=== PATIENT | female | born 1935 | race Caucasian/White ===

== ENCOUNTER 2017-04-16 09:52 | Observation (INO) | payer MEDICARE ==
[2017-04-16] MEDS ORDERED: diPHENhydraMINE PO* 25 MG ONE (10:03)
[2017-04-16] MEDS ORDERED: Diazepam TAB(*) 5 MG ONE (10:03)
[2017-04-16] MEDS ORDERED: fentaNYL* 50 MCG/ML 2 ML VIAL (100 MCG VIAL) ONE (11:09)
[2017-04-16] MEDS ORDERED: Iohexol 350 (CONTRAST) 200 ML MDV IV ONE (11:09)
[2017-04-16] MEDS ORDERED: Midazolam* 1 MG/ML 5 ML VIAL (5 MG) ONE (11:09)
[2017-04-16] MEDS ORDERED: Lidocaine 1% INJ* 10 MG/ML 30 ML SDV ONE (11:09)
[2017-04-16] MEDS ORDERED: Heparin 2 UNITS/ML IVPREMIX* 3,000 ML IV ONE (11:09)
[2017-04-16] MEDS ORDERED: Ticagrelor* 90 MG TAB PO ONE (11:36)
[2017-04-16] MEDS ORDERED: Heparin(*) 1000 UNIT/ML 10 ML VIAL CATH LAB IV ONE (11:36)
[2017-04-16] MEDS ORDERED: nitroGLYCERIN DRIP* 0 ML ONE (11:39)
[2017-04-16] MEDS ORDERED: NS 0.9% 1000 ML* 1,000 ML IV SCH (12:45)
[2017-04-16] MEDS ORDERED: Nitroglycerin TAB 0.4 MG* 0.4 MG TAB SL PRN ×2 (12:45→13:03)
[2017-04-16] MEDS ORDERED: Acetaminophen TAB* 325 MG PO PRN (12:53)
[2017-04-16] MEDS ORDERED: amLODIPine TAB* 5 MG PO ONE (15:08)
[2017-04-16] MEDS ORDERED: Al Hydrox/Mg Hydrox/Simet LIQ* 30 ML UDC PO PRN (15:45)
[2017-04-16] MEDS ORDERED: Lidocaine 1.5% EPI 1:200,000* 30 ML SDV ONE (16:00)
[2017-04-16] MEDS ORDERED: Atorvastatin* 80 MG TAB PO SCH (17:00)
[2017-04-16] MEDS: Ticagrelor* 90 MG TAB PO SCH (20:54)
--- NOTE | 2017-04-17 04:47 | CATH ---
CC: Dr. Sung; Dr. Lincoln * CARDIAC CATHETERIZATION REPORT: DATE OF PROCEDURE: 04/16/17 - ROOM #ICU-12 PROCEDURES: Left cardiac catheterization, selective coronary angiography, left ventriculography. INDICATIONS: The patient is a 81-year-old female patient with strong risk factors for CAD including her age, obesity, systemic arterial hypertension, hyperlipidemia, borderline diabetes, who had been having very concerning symptoms of chest pain and shortness of breath. She had recently a dobutamine stress echo that was strongly abnormal for ischemia in the LAD territory of the apical anterior wall ischemia. She was further referred for a cardiac catheterization to evaluate her coronary anatomy. DESCRIPTION OF PROCEDURE: After informed and written consent had been obtained , the patient was brought into the cardiac catheterization lab where the right femoral region was prepped and draped in the usual sterile fashion. 1% Xylocaine was used for local anesthesia. Next, the right femoral artery was entered and a 6- Belarusian sheath placed into the right femoral artery. Through the right femoral arterial sheath, a 6-Belarusian JL4 catheter was advanced over the arch of the aorta, left coronary engaged, and left coronary arteriography performed. This catheter was removed and a 6-Belarusian JR4 catheter was advanced over the arch of the aorta, right coronary engaged, and right coronary arteriography performed. This catheter was removed and a 6-Belarusian pigtail catheter was advanced over the arch of the aorta into the left ventricle where left ventriculography was performed. This catheter was removed. At this point , I have discussed this patient further with Dr. Oakley from the interventional cardiology services, who kindly reviewed the findings and recommendation for further angioplasty and stenting of the severe stenosis of the left anterior descending artery. HEMODYNAMICS: The aortic pressure is 156/67 mmHg. Left ventricle is 148 with an LVEDP of 8 mmHg. Left main coronary artery: The left main coronary artery was a good caliber vessel. It did give rise to the left anterior descending artery and circumflex coronary artery. The left main was a free of any significant disease. Left anterior descending artery: The left anterior descending artery was a fair caliber vessel. It did reach and wrap around the apex of the left ventricle. In the mid segment, there is significant stenosis of at least 90% with normal ANGELITA-3 flow. Circumflex coronary artery: The circumflex coronary artery was a good caliber vessel. It has up to 40% noncritical disease in the proximal to mid segment. Right coronary artery: The right coronary artery was a good caliber vessel. It was dominant. It has minimal irregularities in the distal. Posterior descending artery was a very small caliber vessel that has about 60% disease in it. The posterolateral branch has probably about 50% disease, which was a very small caliber vessel. Left ventriculography: Left ventriculography was performed in the standard QUINONES projection and showed a normal left ventricular systolic function and wall motion with an EF 55%. CONCLUSION: 1. Multivessel coronary artery disease, most severe in the left anterior descending artery as described. 2. Normal left ventricular systolic function and wall motion with an EF 55%. 3. Please refer to separate report for further angioplasty and stenting, intervention of the left anterior descending artery as per Dr. Oakley. [id number] #: [id number] [id number]
--- NOTE | 2017-04-17 05:55 | CATH ---
CC: Dr. Sung; Dr. Lincoln. STENT REPORT: DATE OF PROCEDURE: 04/16/17 PRIMARY CARE PHYSICIAN: Dr. Sung. BMW SERVICE TECHNICIAN: Dr. Lincoln. PROCEDURE: 1. Diagnostic cardiac cath, Dr. Lincoln. 2. Stent placement, LAD 2.5 x 20 Synergy drug eluting stent, Dr. Oakley, Angio - Seal right common femoral artery. HISTORY: This 81-year-old woman with daily limiting functional class 3, typical angina with exertional dyspnea and fatigue, intermediate-risk dobutamine stress echo. She has a significant functional limitation. Diagnostic catheterization by Dr. Lincoln demonstrated a 90% mid LAD stenosis , I was asked to evaluate for intervention. PROCEDURE ACCESS: Right femoral artery, 6-Icelandic sheath placed by Dr. Lincoln , guiding catheter 6 3.5 wire 14 BMW used to deploy a 2.5 x 20 Synergy drug eluting stent at 14 atmospheres after which it was post dilated with a 2.5 x 20 noncompliant balloon to 18 atmospheres. Right common femoral artery was imaged, was appropriate for Angio-Seal, which was deployed. HEMODYNAMICS: See Dr. Lincoln's report. Final blood pressure 120/51. ANGIOGRAPHY: For the diagnostic part, see Dr. Lincoln's report. LAD is moderate in size, has a nonobstructive plaque before the first septal, then supplies a zawuy-jf-bwqykcus diagonal, which has proximal luminal irregularity, but no significant stenosis. After this diagonal, the has LAD has gradually tapering stenosis culminating in the 90% stenosis in the mid LAD. Distal flow is ANGELITA 2. After drug-eluting stent placement and post dilatation, there is negative residual stenosis, normal antegrade flow, no compromise of the diagonal which was not jailed. RFA. Sheath entry in segment 2, there was no stenosis. CONCLUSION: 1. Single-vessel disease LAD, excellent angiographic resulted drug-eluting stent placement. 2. Successful Angio-Seal, right common femoral artery. 3. For the diagnostic portion, see Dr. Lincoln's report. [id number]/CPS #: [id number] [facility]
[2017-04-17 07:06] LABS: Hematocrit 41 % (35-47); Hemoglobin 13.7 g/dl (12.0-16.0); Mean Corpuscular HGB Conc 33 g/dl (31-36); Mean Corpuscular Hemoglobin 28 pg (27-31); Mean Corpuscular Volume 84 fL (80-97); Mean Platelet Volume 8 um3 (7.4-10.4); Red Cell Distribution Width 13 % (10.5-15); White Blood Count 7.6 10^3/ul (3.5-10.8)
[2017-04-17 07:26] LABS: BUN/Creatinine Ratio 13.5 (8-20); Calcium 9.4 mg/dL (8.6-10.3); EGFR African American 97.4 (>60); EGFR Non-African American 75.7 (>60); Potassium 3.7 mmol/L (3.5-5.0)
[2017-04-17] MEDS ORDERED: Omeprazole CAP* 20 MG PO SCH (07:30)
[2017-04-17] MEDS: Ticagrelor* 90 MG TAB PO SCH (08:23)
[2017-04-17] MEDS ORDERED: Aspirin EC Low Dose* 81 MG TAB.EC PO SCH (09:00)
[2017-04-17] MEDS ORDERED: Metoprolol Succinate XL TAB* 25 MG PO SCH (09:00)
[2017-04-17 12:24] VITALS: BP 149/60
--- NOTE | 2017-04-18 01:49 | DS ---
CC: Dr. Sung; Dr. Lincoln DISCHARGE SUMMARY: DATE OF ADMISSION: DATE OF DISCHARGE: PRIMARY CARE PHYSICIAN: Dr. Sung. PLANT CULTURE MANAGER: Dr. Lincoln. DISCHARGE DIAGNOSES: 1. Angina pectoris functional class 3. 2. Abnormal dobutamine stress echocardiogram. 3. Hypertension. 4. Hyperlipidemia. 5. Diabetes type 2. 6. Obesity. CONDITION ON DISCHARGE: Stable. PROCEDURES: Diagnostic cardiac cath Dr. Lincoln. Stent placement LAD, Dr. Oakley. 2.5 x 20 Syner gy drug-eluting stent. DISCHARGE ACTIVITY: No strenuous exertion for 3 days. Wound care shower only for 3 days. DISCHARGE MEDICATIONS: 1. Aspirin 81 mg daily. 2. Lipitor increased to 80 mg daily in part for pleiotropic benefit. 3. Toprol XL 25 mg daily. 4. Nitroglycerin 0.4 sublingual p.r.n. 5. Prilosec 20 mg daily. 6. Brilinta 90 mg b.i.d., new prescription, without interruption for a minimum of 1 year. FOLLOWUP: Follow up with Dr. Lincoln week after next as already scheduled. DIET: Low-fat, low-cholesterol, carbohydrate consistent. HISTORY: See Dr. Lincoln's outpatient H and P. LABORATORY DATA/DIAGNOSTIC STUDIES: CBC on 04/13/17 was normal. Post PCI, CBC remains normal with hemoglobin 13.7. BNP on the was unremarkable except for random blood sugar of 104, BMP today b lood sugar 119. EKG pre-procedure showed anterior apical T-wave inversion, unchanged post PCI. HOSPITAL COURSE: She underwent diagnostic catheterization by Dr. Lincoln for evaluation of limiti ng class 3 exertional dyspnea and angina with possibly anterior apical Non-ST elevation infarct last September with post infarct angina. Dobutamine stress echo was intermediate risk. Diagnostic cath by Dr. Lincoln demonstrated a severe mid LAD stenosis which was stented as above. Access was right f emoral. She had some scant oozing post procedure controlled with local measures. Today, she is amb ulatory with stable vitals, has no hematoma, exam is normal. Her labs are stable as is EKG. She re ceived full discharge instructions, Lipitor was doubled for its pleiotropic benefit, she is on dual antiplatelet therapy. [id number]/[facility] #: [id number]
== END 2017-04-17 14:00 | disposition home or self-care (01) ==
LOC: CHICATH 09:52 → ICU 12:59 → INTOOBSV 12:59
PROVIDERS: ADMIT Internal Medicine Cardiovascular Disease; ATTEND Internal Medicine Cardiovascular Disease
DX: I25.119 Atherosclerotic heart disease of native coronary artery with unspecified angina pectoris (principal); I11.0 Hypertensive heart disease with heart failure; E78.5 Hyperlipidemia, unspecified; E66.9 Obesity, unspecified; Z79.82 Long term (current) use of aspirin; Z79.899 Other long term (current) drug therapy; Z88.8 Allergy status to other drugs, medicaments and biological substances; R00.2 Palpitations; R94.31 Abnormal electrocardiogram [ECG] [EKG]
CPT/HCPCS: 36415; 80048; 85025; 87641; 93005; 93458; 99156; 99157; A9270-GY; C1725; C1760; C1769; C1876; C1887; C9606-LD; G0378; J1644; J2001; J2250; J3010

== ENCOUNTER 2018-05-03 05:46 | Emergency (ER) | payer MEDICARE ==
[2018-05-03] MEDS ORDERED: Ondansetron INJ* 2 MG/ML VIAL IV ONE (06:09)
[2018-05-03] MEDS ORDERED: Morphine INJ* 2 MG/ML 1 ML SYRINGE (TWO MG - NEW SYRINGE VERSION) IV ONE (06:09)
--- NOTE | 2018-05-03 06:17 | ED ---
Abdominal Pain/Female - HPI Summary HPI Summary: Patient presents with abdominal pain and constipation. She admits her symptoms started night with her feeling abdominal pain and pressure and developing nausea with vomiting. She suspected she was constipated as she has a "rupture" (she further explains this is a hernia) in her lower central abdomen. She admits food gets "hung up here" at times causing her to become constipated. Wednesday, she proceeded to use an enema which she reports allowed her to have a thorough bowel movement and she started to feel better after this although she was still sore for the next couple of days. Vomiting ceased Wednesday and Wednesday and Wednesday however 2:30 this morning she developed acute pain with return of nausea with vomiting. She reports she's only had 2 stringy bowel movements Wednesday and Wednesday which is not normal for her. She typically has at least one regular bowel movement each day. Denies hematemesis, hematochezia, melena. Additionally, she admits to a history of oophorectomy, hysterectomy (d/t large tumors - unsure if cancernous) and fistula repair. Her hernia has not been repaired yet she takes Brilinta first and she had placed 1 year ago. She reports this medication has had the side effect of intermittent shortness of breath over the past year however this is not changed today nor does she report any chest pain, fatigue, sweats, arm or jaw pain. Leading up to these events, she has been eating and drinking well. She continues to urinate without difficulty and denies any back pain or leg pain. She also denies fevers, chills, upper respiratory symptoms. No known sick contacts. Admits to a "bout" of diverticulitis a few months ago requiring her to take Cipro and Flagyl. She was able to see her PCP outpatient and attain treatment this way without hospitalization. - History of Current Complaint Chief Complaint: Dariela Stated Complaint: ABD PAIN Time Seen by Provider: 05/03/18 05:52 Hx Obtained From: Patient Pain Intensity: 8 Allergies/Adverse Reactions: Allergies Allergy/AdvReac Type Severity Reaction Status Date / Time cephalexin Allergy Unknown Verified 05/03/18 06:06 Reaction Details lisinopril Allergy Unknown Verified 05/03/18 06:06 Reaction Details loratadine [From Claritin] Allergy Unknown Verified 05/03/18 06:06 Reaction Details miconazole [From Monistat 7] Allergy Unknown Verified 05/03/18 06:06 Reaction Details theophylline Allergy Unknown Verified 05/03/18 06:06 Reaction Details Home Medications: Home Medications Calcium Carbonate/Vitamin D3 [Calcium 500 mg-Vit D3 600 Unit] 2 each PO DAILY [History Confirmed 05/03/18] PMH/Surg Hx/FS Hx/Imm Hx Previously Healthy: Yes Endocrine/Hematology History: Reports: Hx Anticoagulant Therapy - Brilinta - stent Denies: Hx Blood Disorders, Hx Blood Transfusions, Hx Bone Marrow Disease, Hx Diabetes, Hx Systemic Lupus Erythematosus, Hx Sickle Cell Disease, Hx Thyroid Disease, Hx Anemia, Hx Unexplained Bleeding, Other Endocrine/ Hematological Disorders Cardiovascular History: Reports: Hx Angina, Hx Angioplasty, Hx Coronary Artery Disease - stent in 04/2017, Hx Hypercholesterolemia, Hx Hypertension - WELL CONTROLLED Denies: Hx Aneurysm, Hx Auto Implanted Cardiovert Defib, Hx Cardiac Arrest, Hx Cardiomegaly, Hx Congenital Heart Disease, Hx Congestive Heart Failure, Hx Deep Vein Thrombosis, Hx Hypotension, Hx Pacemaker/ICD, Hx Peripheral Vascular Disease, Hx Rheumatic Fever, Hx Syncope - diverticulitis related, Hx Valvular Heart Disease, Other Cardiovascular Problems/Disorders Respiratory History: Reports: Hx Chronic Bronchitis, Hx Seasonal Allergies Denies: Hx Asthma, Hx Chronic Obstructive Pulmonary Disease (COPD), Hx Cystic Fibrosis, Hx Lung Cancer, Hx Pleural Effusion, Hx Pneumonia, Hx Pulmonary Edema, Hx Pulmonary Embolism, Hx Sleep Apnea GI History: Reports: Hx Diverticulosis - Diverticulitis, Hx Gastroesophageal Reflux Disease, Hx Hiatal Hernia - small, Other GI Disorders - fistula, central lower ab hernia Denies: Hx Cirrhosis, Hx Crohn's Disease, Hx Gall Bladder Disease, Hx Gastrointestinal Bleed, Hx Irritable Bowel, Hx Jaundice, Hx Obstructive Bowel, Hx Ileostomy, Hx Pyloric Stenosis, Hx Ulcer Musculoskeletal History: Reports: Hx Arthritis - SPINE, hands, Hx Tendonitis - wrist Sensory History: Reports: Hx Cataracts, Hx Contacts or Glasses - cataract sugery in 2014. wears reading glasses Denies: Hx Eye Injury, Hx Eye Prosthesis, Hx Glaucoma, Hx Legally Blind, Hx Macular Degeneration, Hx Vision Problem, Hx Deafness, Hx Hearing Aid, Hx Hearing Problem, Other Sensory Impairments Opthamlomology History: Reports: Hx Cataracts, Hx Contacts or Glasses - cataract sugery in 2014. wears reading glasses Denies: Hx Eye Injury, Hx Eye Prosthesis, Hx Glaucoma, Hx Legally Blind, Hx Macular Degeneration, Hx Vision Problem, Other Sensory Impairments Psychiatric History: Denies: Hx Anxiety, Hx Attention Deficit Hyperactivity Disorder, Hx Community Mental Health Tx, Hx Bipolar Disorder - Surgical History Surgery Procedure, Year, and Place: colorectal fistula repair, Total hysterectomy and oopherectomy, removed gangilion from left hand Hx Anesthesia Reactions: No - Immunization History Date of Tetanus Vaccine: unk Date of Influenza Vaccine: unk Infectious Disease History: No Infectious Disease History: Denies: Hx Hepatitis, Hx Tuberculosis, History Other Infectious Disease, Traveled Outside the [place] in Last 30 Days - Social History Occupation: Retired Lives: With Family - who is in a wheelchair Alcohol Use: None Hx Substance Use: No Substance Use Type: Reports: None Hx Tobacco Use: No Smoking Status (MU): Never Smoked Tobacco Review of Systems Constitutional: Negative Negative: Fever, Chills, Fatigue ENT: Negative Cardiovascular: Negative Respiratory: Negative Positive: Abdominal Pain, Vomiting, Nausea. Negative: Diarrhea Genitourinary: Negative Musculoskeletal: Negative Skin: Negative Neurological: Negative Psychological: Normal All Other Systems Reviewed And Are Negative: Yes Physical Exam Triage Information Reviewed: Yes Vital Signs On Initial Exam: Initial Vitals Temp Pulse Resp BP Pulse Ox 97.7 F 68 18 190/69 95 05/03/18 05:49 05/03/18 05:49 05/03/18 05:49 05/03/18 05:49 05/03/18 05:49 Vital Signs Reviewed: Yes Appearance: Positive: Well-Appearing, No Pain Distress - reports she's in between waves of pain - they come about every 20 mins, Well-Nourished Skin: Positive: Warm, Skin Color Reflects Adequate Perfusion, Dry - old, healed scars over ab Head/Face: Positive: Normal Head/Face Inspection Eyes: Positive: Normal, EOMI, Conjunctiva Clear - anicteric sclera ENT: Positive: Hearing grossly normal, Pharynx normal - mucosa somewhat dry Neck: Positive: Supple Respiratory/Lung Sounds: Positive: Clear to Auscultation, Breath Sounds Present. Negative: Rales, Rhonchi Cardiovascular: Positive: Normal, RRR, S1, S2. Negative: Murmur, Rub, Leg Edema Left, Leg Edema Right Abdomen Description: Positive: No Organomegaly, Soft, Distended - feels "full"/ "bloated" currently, Other: - mild TTP in LLQ Bowel Sounds: Positive: Present, Hypoactive Pelvic Exam: Positive: Other - deferred Musculoskeletal: Positive: Normal, Strength/ROM Intact Neurological: Positive: Normal, Sensory/Motor Intact, Alert, Oriented to Person Place, Time, CN Intact II-III Psychiatric: Positive: Normal - pleasant, in good spirits Diagnostics - Vital Signs Vital Signs Temp Pulse Resp BP Pulse Ox 05/03/18 06:00 68 20 95 05/03/18 05:58 68 6 94 05/03/18 05:57 70 190/69 92 05/03/18 05:49 97.7 F 68 18 190/69 95 - Laboratory Result Diagrams: 05/03/18 06:25 05/03/18 06:25 Lab Statement: Any lab studies that have been ordered have been reviewed, and results considered in the medical decision making process. Re-Evaluation - Re-Evaluation First Eval Change: Improved - Nausea and pain resolved s/p meds. Nurse reports pt had a large BM and feels much better. Abdominal Pain Fem Course/Dx - Diagnoses Provider Diagnoses: Abdominal pain Discharge - Sign-Out/Discharge Documenting (check all that apply): Patient Departure - Discharge Plan Condition: Stable Disposition: HOME Patient Education Materials: Constipation (ED), Umbilical Hernia (ED) Referrals: óGmez Weems MD [Medical Doctor] - Additional Instructions: Eat a low residual diet and follow-up with Dr. Weems, general surgeon, as this area continues to be an issue for you. Your herniation today is of fatty tissue, not intestine. This may be causing you irritation in the area - you may also have old scar tissue causing you problems from time to time in reagrds to your ability to pass stool. It is important that you eat foods that are easily digested to prevent constipation. *If in the meantime you develop return of vomiting and inability to move your bowels with abdominal pain and/or fever, chills, chest pain, return to the ED - Billing Disposition and Condition Condition: STABLE Disposition: Home
[2018-05-03] MEDS ORDERED: NS 0.9% 500 ML* 500 ML IV ONE (06:19)
[2018-05-03] MEDS ORDERED: Morphine INJ* 4 MG/ML 1 ML SYRINGE (NEW SYRINGE VERSION) ONE (06:29)
[2018-05-03 06:40] LABS: ABS Basophils 0.1 10^3/ul (0-0.2); ABS Eosinophils 0.3 10^3/ul (0-0.6); ABS Lymphocytes 1.2 10^3/ul (1.0-4.8); ABS Monocytes 0.4 10^3/ul (0-0.8); ABS Neutrophils 5.1 10^3/ul (1.5-7.7); ABS Nucleated RBC 0 10^3/ul; Eosinophil % 4.8 % (0-6); Hematocrit 40 % (35-47); Hemoglobin 13.6 g/dl (12.0-16.0); Lymphocyte % 16.5 % (25-47); Mean Corpuscular HGB Conc 34 g/dl (31-36); Mean Corpuscular Hemoglobin 29 pg (27-31); Mean Corpuscular Volume 85 fL (80-97); Nucleated Red Blood Cells % 0; Platelet Count 288 10^3/ul (150-450); Red Blood Count 4.72 10^6/ul (4.00-5.40); Red Cell Distribution Width 14 % (10.5-15); White Blood Count 7.1 10^3/ul (3.5-10.8)
[2018-05-03 06:49] LABS: INR 0.97 (0.77-1.02)
[2018-05-03 07:00] LABS: EGFR Non-African American 83.3 (>60)
[2018-05-03] MEDS ORDERED: Iohexol 300* (CONTRAST) 10 ML SDV IV ONE (07:36)
--- NOTE | 2018-05-03 09:02 | RAD ---
INDICATION: Lower central abdominal pain with vomiting. Limited bowel movements. History of diverticulitis, fistula, hernia. Previous colorectal fistula repair. Post hysterectomy and ovary resection. COMPARISON: No relevant prior exams available on the [facility] PACS for comparison. TECHNIQUE: Multidetector CT images were obtained from the lung bases to the ischial tuberosities with 111 mL Omnipaque 300 IV and oral contrast. Multiplanar reformation. REPORT: VISUALIZED INFERIOR THORAX: Unremarkable visualized inferior thorax. LIVER / GALLBLADDER / PANCREAS / SPLEEN: Decreased density of the liver relative to the spleen consistent with hepatosteatosis. Negative for focal liver lesions. Suggestion of a normal variant fold at the fundus of the gallbladder without concern. Negative for biliary dilatation. Unremarkable pancreas and spleen. ALIMENTARY TRACT: No CT abnormality of the upper GI or small bowel. The appendix is not visualized. Negative for RIGHT lower quadrant inflammatory change. No CT abnormality of the colon. Periumbilical omental fat herniation with soft tissue edema. The herniated omental fat measures up to 4.8 cm AP by 6.2 cm transverse by 7.7 cm cephalocaudal and exits through a 2.1 cm cephalocaudal by 2.6 cm transverse fascia defect. The appearance is most consistent with and incarcerated hernia. Additional LEFT para midline fat containing ventral abdominal wall hernias without inflammatory change. Negative for free air. MESENTERIC: Unremarkable. ADRENAL / GENITOURINARY: Normal adrenal glands. Unremarkable kidneys with symmetric nephrograms and pyelograms. Unremarkable nondilated ureters. Pelvic phleboliths noted adjacent to the distal RIGHT ureter. Unremarkable distended urinary bladder. Post hysterectomy. Unremarkable adnexal regions. RETROPERITONEAL: Negative for lymphadenopathy. VASCULAR: Atherosclerotic plaque of normal diameter abdominal aorta and iliac arteries. Physiologic distention of the IVC. BONES: Negative for suspicious osseous lesions. Lumbar sacral spine degenerative spondylosis and facet joint osteoarthritis. Grade 1-2 degenerative L5-S1 anterolisthesis. SOFT TISSUE: Unremarkable. IMPRESSION: #. The constellation of findings is most consistent with an incarcerated omental fat-containing umbilical hernia. #. Hepatosteatosis.
[2018-05-03 11:02] VITALS: BP 136/60
== END 2018-05-03 11:01 | disposition home or self-care (01) ==
LOC: ED 05:46
DX: R10.9 Unspecified abdominal pain (principal); R11.0 Nausea; I10 Essential (primary) hypertension; Z90.710 Acquired absence of both cervix and uterus; Z87.19 Personal history of other diseases of the digestive system; Z88.3 Allergy status to other anti-infective agents; Z88.8 Allergy status to other drugs, medicaments and biological substances
CPT/HCPCS: 36415; 74177; 80053; 83605; 83690; 83735; 85025; 85610; 85730; 86140; 96374; 96375; 99284; J2270; J2405; Q9967